=== PATIENT | male | born 1950 | race African-American/Black ===

== ENCOUNTER 2018-09-16 13:33 | Inpatient (IN) ==
[2018-09-16] MEDS ORDERED: MAGNESIUM SULF RIDER 4 GM in PREMIX 1 EACH IV PRN (15:48)
[2018-09-16] MEDS ORDERED: ACETAMINOPHEN 325 MG TABLET PO PRN (15:48)
[2018-09-16] MEDS ORDERED: ONDANSETRON 4 MG/2 ML VIAL IV PRN (15:48)
[2018-09-16] MEDS ORDERED: POTASSIUM CHLORIDE 20 MEQ TABLET PO PRN ×2 (15:48)
[2018-09-16] MEDS ORDERED: MAGNESIUM SULF RIDER 2 GM in PREMIX 1 EACH IV PRN (15:48)
[2018-09-16] MEDS ORDERED: ZALEPLON 5 MG CAPSULE PO PRN (15:48)
[2018-09-16] MEDS ORDERED: MORPHINE 4 MG/1 ML VIAL IV PRN (15:48)
[2018-09-16] MEDS ORDERED: MAGNESIUM SULF RIDER 2 GM in PREMIX 1 EACH IV ONE (16:01)
[2018-09-16] MEDS: NICOTINE 21 MG/24 HR PATCH TRANSDERM SCH (17:03)
[2018-09-16] MEDS: SODIUM CHLOR 0.9% KCL 40 MEQ 40 MEQ/1,000 ML BAG IV SCH (17:03)
[2018-09-16] MEDS: PANTOPRAZOLE 40 MG TABLET PO SCH (17:04)
[2018-09-16] MEDS: LORazepam 2 MG/1 ML VIAL IV PRN ×2 (17:04→21:17)
[2018-09-16] MEDS: FOLIC ACID 1 MG TABLET PO SCH (17:04)
[2018-09-16] MEDS: THIAMINE 100 MG TABLET PO SCH (17:04)
[2018-09-16] MEDS: NITROGLYCERIN 0.4 MG/HR PATCH TRANSDERM SCH (17:10)
[2018-09-16 17:23] LABS: Basophils % 0.4 % (0.0-0.8); Hematocrit 34.7 VOL% (42.0-52.0); Hemoglobin 11.4 GM/DL (14.0-18.0); Immature Granulocytes % 0.4 %; Immature Granulocytes Absolute 0.03 #; Lymphocytes # 1.8 10*3/uL (1.4-4.0); Lymphocytes % 26.4 % (21.2-54.2); Mean Corpuscular HGB Conc 32.9 GM/DL (32-36); Mean Corpuscular Hemoglobin 23 PG (27-34); Mean Corpuscular Volume 69.8 FL (87-102); Mean Platelet Volume 10.5 FL (9.6-12.0); Monocytes # 0.9 10*3/uL (0.11-0.8); Monocytes % 12.6 % (1.7-12.7); NRBC # 0.02 10*3/uL; Neutrophils # 4.1 10*3/uL (1.4-7.4); Neutrophils % 60.2 % (38.7-73.9); Platelet Count 209 T/CUMM (130-400); Red Blood Count 4.97 MC/CUMM (3.8-5.5); Red Cell Distribution Width 14.7 % (9.3-17.3); White Blood Count 6.8 T/CUMM (4-12)
[2018-09-16 17:41] LABS: PT Patient Result 11.1 SECS; Partial Thromboplastin Time 32.5 SECS (0-40)
[2018-09-16 17:43] LABS: Albumin 3.2 G/DL (3.4-5.0); Bilirubin,Total 0.4 MG/DL (0.2-1.0); Calcium 8.8 MG/DL (8.5-10.1); Osmolality,Calculated 265.2 MOS/KG (273-304); Total Protein 8.2 G/DL (6.4-8.3)
[2018-09-16] MEDS ORDERED: ATORVASTATIN 20 MG TABLET PO SCH (21:00)
[2018-09-16] MEDS: METOPROLOL TARTRATE 50 MG TABLET PO SCH (21:19)
[2018-09-17] MEDS: LORazepam 2 MG/1 ML VIAL IV PRN ×4 (01:10→21:25)
[2018-09-17] MEDS: SODIUM CHLOR 0.9% KCL 40 MEQ 40 MEQ/1,000 ML BAG IV SCH ×3 (03:01→20:17)
[2018-09-17 04:19] LABS: Basophils % 0.1 % (0.0-0.8); Eosinophils % 0.1 % (0.00-10.9); Hematocrit 34.4 VOL% (42.0-52.0); Hemoglobin 11.2 GM/DL (14.0-18.0); Immature Granulocytes % 0.3 %; Immature Granulocytes Absolute 0.02 #; Lymphocytes # 1.4 10*3/uL (1.4-4.0); Lymphocytes % 20.4 % (21.2-54.2); Mean Corpuscular HGB Conc 32.6 GM/DL (32-36); Mean Corpuscular Hemoglobin 23 PG (27-34); Mean Corpuscular Volume 70.5 FL (87-102); Mean Platelet Volume 10.5 FL (9.6-12.0); Monocytes # 1.1 10*3/uL (0.11-0.8); NRBC # 0.03 10*3/uL; Neutrophils # 4.5 10*3/uL (1.4-7.4); Neutrophils % 64.1 % (38.7-73.9); Platelet Count 208 T/CUMM (130-400); Red Blood Count 4.88 MC/CUMM (3.8-5.5); Red Cell Distribution Width 14.5 % (9.3-17.3)
[2018-09-17 04:22] LABS: Basophils % 0.3 % (0.0-0.8); Eosinophils % 0.1 % (0.00-10.9); Hematocrit 35.9 VOL% (42.0-52.0); Hemoglobin 11.4 GM/DL (14.0-18.0); Immature Granulocytes % 0.4 %; Immature Granulocytes Absolute 0.03 #; Lymphocytes # 1.3 10*3/uL (1.4-4.0); Lymphocytes % 19.3 % (21.2-54.2); Mean Corpuscular HGB Conc 31.8 GM/DL (32-36); Mean Corpuscular Hemoglobin 23 PG (27-34); Mean Corpuscular Volume 71.1 FL (87-102); Mean Platelet Volume 10.6 FL (9.6-12.0); Monocytes # 0.9 10*3/uL (0.11-0.8); Monocytes % 12.6 % (1.7-12.7); NRBC # 0.03 10*3/uL; Neutrophils # 4.6 10*3/uL (1.4-7.4); Neutrophils % 67.3 % (38.7-73.9); Platelet Count 219 T/CUMM (130-400); Red Blood Count 5.05 MC/CUMM (3.8-5.5); Red Cell Distribution Width 14.7 % (9.3-17.3); White Blood Count 6.8 T/CUMM (4-12)
[2018-09-17 04:46] LABS: Albumin 3.3 G/DL (3.4-5.0); Bilirubin,Total 1.3 MG/DL (0.2-1.0); Calcium 8.7 MG/DL (8.5-10.1); Osmolality,Calculated 267.2 MOS/KG (273-304); Potassium 4.1 MMOL/L (3.5-5.1); Risk Ratio 2.07; Total Protein 8.5 G/DL (6.4-8.3); VLDL CHOLESTEROL 12.8 MG/DL
[2018-09-17 08:24] LABS: Sedimentation Rate-Westergren 24 MM/HR (0-20)
[2018-09-17] MEDS: PANTOPRAZOLE 40 MG TABLET PO SCH (09:06)
[2018-09-17] MEDS: FOLIC ACID 1 MG TABLET PO SCH (09:06)
[2018-09-17] MEDS: ASPIRIN EC 325 MG TABLET PO SCH (09:06)
[2018-09-17] MEDS: THIAMINE 100 MG TABLET PO SCH (09:07)
[2018-09-17] MEDS: METOPROLOL TARTRATE 50 MG TABLET PO SCH ×2 (09:07→21:22)
[2018-09-17] MEDS: NITROGLYCERIN 0.4 MG/HR PATCH TRANSDERM SCH (09:07)
[2018-09-17] MEDS: NICOTINE 21 MG/24 HR PATCH TRANSDERM SCH (09:07)
[2018-09-17] MEDS ORDERED: ENOXAPARIN 40 MG/0.4 ML SYRINGE SUBCUT SCH (21:00)
[2018-09-18] MEDS: LORazepam 2 MG/1 ML VIAL IV PRN (01:30)
[2018-09-18] MEDS ORDERED: LORazepam 2 MG/1 ML VIAL IM ONE (01:56)
[2018-09-18] MEDS: SODIUM CHLOR 0.9% KCL 40 MEQ 40 MEQ/1,000 ML BAG IV SCH (02:31)
[2018-09-18 05:40] LABS: Albumin 3.3 G/DL (3.4-5.0); Bilirubin,Total 0.8 MG/DL (0.2-1.0); Calcium 8.6 MG/DL (8.5-10.1); Osmolality,Calculated 265.2 MOS/KG (273-304); Potassium 3.4 MMOL/L (3.5-5.1); Total Protein 7.6 G/DL (6.4-8.3)
[2018-09-18] MEDS: THIAMINE 100 MG TABLET PO SCH (08:25)
[2018-09-18] MEDS: ASPIRIN EC 325 MG TABLET PO SCH (08:25)
[2018-09-18] MEDS: METOPROLOL TARTRATE 50 MG TABLET PO SCH (08:25)
[2018-09-18] MEDS: PANTOPRAZOLE 40 MG TABLET PO SCH (08:25)
[2018-09-18] MEDS: FOLIC ACID 1 MG TABLET PO SCH (08:25)
[2018-09-18] MEDS: NICOTINE 21 MG/24 HR PATCH TRANSDERM SCH (08:26)
[2018-09-18] MEDS: NITROGLYCERIN 0.4 MG/HR PATCH TRANSDERM SCH (08:26)
[2018-09-18] MEDS ORDERED: chlordiazePOXIDE 10 MG CAPSULE PO SCH (09:00)
[2018-09-18 12:08] VITALS: BP 127/77
[2018-09-18] MEDS ORDERED: INFLUENZA VIRUS VACCINE 0.5 ML SYRINGE IM ONE (12:11)
== END 2018-09-18 12:27 | disposition home or self-care (01) | DRG 313 ==
LOC: N.TELEN → SUATTDRO 15:47
PROVIDERS: ADMIT Internal Medicine; ATTEND Internal Medicine

== ENCOUNTER 2021-12-03 17:37 | Inpatient (IN) ==
[2021-12-03] MEDS ORDERED: fentaNYL 100 MCG/2 ML VIAL IV STA (18:12)
[2021-12-03] MEDS ORDERED: hydrALAZINE 20 MG/1 ML VIAL IV STA (18:12)
[2021-12-03] MEDS ORDERED: ONDANSETRON 4 MG/2 ML VIAL IV STA (18:12)
[2021-12-03 18:22] LABS: Basophils % 0.2 % (0.0-0.8); Eosinophils % 0.1 % (0.00-10.9); Hematocrit 35.2 VOL% (42.0-52.0); Hemoglobin 11.9 GM/DL (14.0-18.0); Immature Granulocytes % 0.6 %; Immature Granulocytes Absolute 0.08 #; Lymphocytes % 14.8 % (21.2-54.2); Mean Corpuscular HGB Conc 33.8 GM/DL (32-36); Mean Corpuscular Volume 71.5 FL (87-102); Monocytes % 9.2 % (1.7-12.7); NRBC # 0.03 10*3/uL; Neutrophils % 75.1 % (38.7-73.9); Platelet Count 235 T/CUMM (130-400); Red Blood Count 4.92 MC/CUMM (3.8-5.5); Red Cell Distribution Width 15.4 % (9.3-17.3); White Blood Count 13.7 T/CUMM (4-12)
[2021-12-03 18:48] LABS: Bilirubin,Total 0.4 MG/DL (0.20-1.00); Calcium 8.4 MG/DL (8.5-10.1); Osmolality,Calculated 263.4 MOS/KG (273-304); Potassium 3.2 MMOL/L (3.5-5.1); Total Protein 7.6 G/DL (6.4-8.2)
[2021-12-03] MEDS ORDERED: LORazepam 2 MG/1 ML VIAL IV STA (20:16)
[2021-12-03] MEDS ORDERED: MAGNESIUM SULF RIDER 2 GM/50 ML PREMIX IV STA (20:25)
[2021-12-03 20:29] LABS: ABG Base Excess 3.2 MMOL/L (-2.5-2.5); ABG HCO3 24.8 MMOL/L (20-26); ABG Oxygen Saturation 91.3 % (95-100); ABG PCO2 28.7 MM HG (35-48); ABG PH 7.554 (7.35-7.45); ABG PO2 59.9 MM HG (80-95); ABG TCO2 25.7 MMOL/L (23-27)
[2021-12-03] MEDS ORDERED: cloNIDine 0.3 MG/24 HR PATCH TRANSDERM SCH (20:30)
[2021-12-03] MEDS ORDERED: LORazepam 2 MG/1 ML VIAL IV PRN (20:31)
[2021-12-03] MEDS ORDERED: KETOROLAC 30 MG/1 ML VIAL IV STA (20:34)
[2021-12-03] MEDS ORDERED: fentaNYL 100 MCG/2 ML VIAL IV PRN (20:38)
[2021-12-03] MEDS ORDERED: DEXTROSE 10% 250 ML BAG IV PRN (20:40)
[2021-12-03] MEDS ORDERED: GLUCAGON 1 MG VIAL IM PRN (20:40)
[2021-12-03] MEDS ORDERED: ONDANSETRON 4 MG/2 ML VIAL IV PRN (20:44)
[2021-12-03] MEDS: MEROPENEM 500 MG in SODIUM CHLORIDE 0.9% 100 ML IV SCH (20:49)
[2021-12-03] MEDS ORDERED: ALBUTEROL/IPRATROPIUM 3 ML NEB RESP TX SCH (21:00)
[2021-12-03] MEDS ORDERED: DOXYCYCLINE HYCLATE INJ 100 MG in SODIUM CHLORIDE 0.9% 100 ML IV SCH (21:00)
[2021-12-03 22:17] LABS: Barbiturates Screen,Urine Negative (Negative); Benzodiazepines Screen,Urine Negative (Negative); Cannabinoid Screen,Urine Negative (Negative); Opiate Screen,Urine Positive (Negative); Phencyclidine Screen,Urine Negative (Negative)
[2021-12-03] MEDS: ENOXAPARIN 40 MG/0.4 ML SYRINGE SUBCUT SCH (23:03)
[2021-12-03] MEDS: THIAMINE 200 MG/2 ML VIAL IV SCH (23:48)
[2021-12-03] MEDS: DEXT 5% NACL 0.45% KCL 20 MEQ 20 MEQ/1,000 ML BAG IV SCH (23:49)
[2021-12-04] MEDS: LORazepam 2 MG/1 ML VIAL IV SCH ×4 (00:11→21:37)
[2021-12-04] MEDS: MEROPENEM 500 MG in SODIUM CHLORIDE 0.9% 100 ML IV SCH (01:58)
[2021-12-04 05:13] LABS: Basophils % 0.4 % (0.0-0.8); Eosinophils % 0.1 % (0.00-10.9); Hematocrit 35.8 VOL% (42.0-52.0); Hemoglobin 12.1 GM/DL (14.0-18.0); Immature Granulocytes % 0.5 %; Immature Granulocytes Absolute 0.05 #; Lymphocytes # 1.6 10*3/uL (1.4-4.0); Lymphocytes % 15.2 % (21.2-54.2); Mean Corpuscular HGB Conc 33.8 GM/DL (32-36); Mean Corpuscular Volume 71.6 FL (87-102); Mean Platelet Volume 9.7 FL (9.6-12.0); Monocytes % 14.7 % (1.7-12.7); NRBC # 0.02 10*3/uL; Neutrophils % 69.1 % (38.7-73.9); Platelet Count 251 T/CUMM (130-400); Red Cell Distribution Width 15.6 % (9.3-17.3); White Blood Count 10.3 T/CUMM (4-12)
[2021-12-04 05:52] LABS: Potassium 2.8 MMOL/L (3.5-5.1); Thyroid Stimulating Hormone 1.51 uIU/ml (0.358-3.74)
[2021-12-04] MEDS: ALBUTEROL/IPRATROPIUM 3 ML NEB RESP TX SCH ×4 (07:30→20:00)
[2021-12-04] MEDS ORDERED: POTASSIUM CHLORIDE RIDER 10 MEQ/100 ML PREMIX IV PRN (07:54)
[2021-12-04] MEDS ORDERED: ERTAPENEM 1,000 MG in SODIUM CHLORIDE 0.9% 100 ML IV ONE (08:00)
[2021-12-04] MEDS: POTASSIUM CHLORIDE 20 MEQ TABLET PO PRN (09:07)
[2021-12-04] MEDS: FOLIC ACID INJ 1 MG in SYRINGE 1 EACH IV SCH (09:08)
[2021-12-04] MEDS: THIAMINE 200 MG/2 ML VIAL IV SCH ×2 (09:08→21:34)
[2021-12-04] MEDS: PANTOPRAZOLE 40 MG VIAL IV SCH (09:08)
[2021-12-04] MEDS: PIPERACILLIN/TAZOBACTAM 3,375 MG in SODIUM CHLORIDE 0.9% 100 ML IV SCH ×2 (09:09→15:27)
[2021-12-04] MEDS ORDERED: SUCCINYLCHOLINE 200 MG/10 ML VIAL ONE (10:49)
[2021-12-04] MEDS ORDERED: PHENYLEPHRINE 1 MG/10 ML SYRINGE IV ONE (10:49)
[2021-12-04] MEDS ORDERED: propofoL 200 MG/20 ML VIAL IV ONE (10:49)
[2021-12-04] MEDS ORDERED: ROCURONIUM 50 MG/5 ML VIAL IV ONE (10:49)
[2021-12-04] MEDS ORDERED: ETOMIDATE 40 MG/20 ML VIAL IV ONE (10:49)
[2021-12-04] MEDS ORDERED: ONDANSETRON 4 MG/2 ML VIAL ONE (10:49)
[2021-12-04] MEDS ORDERED: SEVOFLURANE 1 UNIT/15 MINUTE INH ONE (10:49)
[2021-12-04] MEDS ORDERED: LIDOCAINE 2% 5 ML VIAL ONE (10:49)
[2021-12-04] MEDS ORDERED: MIDAZOLAM 2 MG/2 ML VIAL ONE (10:49)
[2021-12-04] MEDS ORDERED: fentaNYL 250 MCG/5 ML VIAL ONE (10:50)
[2021-12-04] MEDS ORDERED: DEXAMETHASONE 4 MG/1 ML VIAL ONE (10:54)
[2021-12-04] MEDS ORDERED: LIDOCAINE 1% 5 ML VIAL ONE (10:54)
[2021-12-04] MEDS ORDERED: ROPIVACAINE 0.5% 30 ML VIAL ONE (10:54)
[2021-12-04] MEDS ORDERED: INDOCYANINE GREEN 25 MG VIAL IV ONE (10:57)
[2021-12-04] MEDS ORDERED: ALBUTEROL 2.5 MG/3 ML NEB RESP TX ONE (11:51)
[2021-12-04] MEDS ORDERED: PHENYLEPHRINE 10 MG/1 ML VIAL IV ONE (12:25)
[2021-12-04] MEDS ORDERED: NEOSTIGMINE 10 MG/10 ML VIAL ONE (13:19)
[2021-12-04] MEDS ORDERED: GLYCOPYRROLATE 0.4 MG/2 ML VIAL ONE (13:19)
[2021-12-04] MEDS: LACTATED RINGERS 1,000 ML IV SCH (15:26)
[2021-12-04 16:11] LABS: Basophils % 0.1 % (0.0-0.8); Eosinophils % 0.1 % (0.00-10.9); Hematocrit 36.6 VOL% (42.0-52.0); Hemoglobin 12.1 GM/DL (14.0-18.0); Immature Granulocytes % 0.5 %; Immature Granulocytes Absolute 0.04 #; Lymphocytes # 0.4 10*3/uL (1.4-4.0); Lymphocytes % 5.4 % (21.2-54.2); Mean Corpuscular HGB Conc 33.1 GM/DL (32-36); Mean Platelet Volume 9.2 FL (9.6-12.0); Monocytes % 2.8 % (1.7-12.7); Neutrophils % 91.1 % (38.7-73.9); Platelet Count 241 T/CUMM (130-400); Red Blood Count 5.08 MC/CUMM (3.8-5.5); Red Cell Distribution Width 15.6 % (9.3-17.3); White Blood Count 8.1 T/CUMM (4-12)
[2021-12-04 16:30] LABS: Calcium 7.9 MG/DL (8.5-10.1); Osmolality,Calculated 274.8 MOS/KG (273-304); Potassium 3.2 MMOL/L (3.5-5.1)
[2021-12-04 16:41] LABS: Band Neutrophils 4 % (0-10); Lymphocytes 5 % (20-55); Segmented Neutrophils 88 % (50-85); Total Cells Counted 100
[2021-12-04 16:42] LABS: Hypochromia 1+; Platelet Estimate Adequate; Target Cells 1+
[2021-12-04] MEDS: DEXT 5% NACL 0.45% KCL 20 MEQ 20 MEQ/1,000 ML BAG IV SCH (19:02)
[2021-12-04] MEDS: ENOXAPARIN 40 MG/0.4 ML SYRINGE SUBCUT SCH (21:31)
[2021-12-05] MEDS: ALBUTEROL/IPRATROPIUM 3 ML NEB RESP TX SCH ×2 (00:20→07:35)
[2021-12-05] MEDS: LACTATED RINGERS 1,000 ML IV SCH ×2 (03:49→14:07)
[2021-12-05] MEDS: LORazepam 2 MG/1 ML VIAL IV SCH ×2 (05:30→13:15)
[2021-12-05 07:07] LABS: Basophils % 0.2 % (0.0-0.8); Hematocrit 34.3 VOL% (42.0-52.0); Hemoglobin 11.4 GM/DL (14.0-18.0); Immature Granulocytes % 0.5 %; Immature Granulocytes Absolute 0.06 #; Lymphocytes # 1.2 10*3/uL (1.4-4.0); Lymphocytes % 9.9 % (21.2-54.2); Mean Corpuscular HGB Conc 33.2 GM/DL (32-36); Mean Corpuscular Volume 72.4 FL (87-102); Mean Platelet Volume 9.8 FL (9.6-12.0); Monocytes % 9.5 % (1.7-12.7); NRBC # 0.02 10*3/uL; Neutrophils % 79.9 % (38.7-73.9); Platelet Count 251 T/CUMM (130-400); Red Blood Count 4.74 MC/CUMM (3.8-5.5); Red Cell Distribution Width 15.6 % (9.3-17.3); White Blood Count 12.5 T/CUMM (4-12)
[2021-12-05 07:31] LABS: Hypochromia Slight; Lymphocytes 15 % (20-55); Microcytosis Slight; Platelet Estimate Adequate; Segmented Neutrophils 81 % (50-85); Target Cells Few; Total Cells Counted 100
[2021-12-05 07:45] LABS: Albumin 2.6 G/DL (3.4-5.0); Bilirubin,Total 0.6 MG/DL (0.20-1.00); Calcium 8.3 MG/DL (8.5-10.1); Osmolality,Calculated 267.1 MOS/KG (273-304); Potassium 3.4 MMOL/L (3.5-5.1)
[2021-12-05] MEDS ORDERED: MAGNESIUM SULF RIDER 2 GM/50 ML PREMIX IV ONE (08:05)
[2021-12-05] MEDS: FOLIC ACID INJ 1 MG in SYRINGE 1 EACH IV SCH (08:47)
[2021-12-05] MEDS: PANTOPRAZOLE 40 MG VIAL IV SCH (08:49)
[2021-12-05] MEDS: THIAMINE 200 MG/2 ML VIAL IV SCH (08:53)
[2021-12-05] MEDS: POTASSIUM CHLORIDE 20 MEQ TABLET PO PRN ×2 (08:56→13:15)
[2021-12-05 11:53] VITALS: BP 141/79
== END 2021-12-05 14:13 | disposition home or self-care (01) | DRG 329 ==
LOC: EDUNIT# → EDBD → N.ED 17:37 → N.TELES 19:14 → SUATTDRO 19:14 → N.TELES 23:04
PROVIDERS: ADMIT Internal Medicine; ATTEND Emergency Medicine

== ENCOUNTER 2021-12-08 16:03 | Inpatient (IN) ==
[2021-12-08 19:26] LABS: Basophils % 0.1 % (0.0-0.8); Hematocrit 26.3 VOL% (42.0-52.0); Hemoglobin 8.7 GM/DL (14.0-18.0); Immature Granulocytes % 1.4 %; Immature Granulocytes Absolute 0.14 #; Lymphocytes # 1.5 10*3/uL (1.4-4.0); Lymphocytes % 14.7 % (21.2-54.2); Mean Corpuscular HGB Conc 33.1 GM/DL (32-36); Mean Corpuscular Volume 73.9 FL (87-102); Mean Platelet Volume 9.9 FL (9.6-12.0); Monocytes % 8.4 % (1.7-12.7); NRBC # 0.02 10*3/uL; Neutrophils % 75.4 % (38.7-73.9); Platelet Count 247 T/CUMM (130-400); Red Blood Count 3.56 MC/CUMM (3.8-5.5); Red Cell Distribution Width 14.9 % (9.3-17.3); White Blood Count 10.2 T/CUMM (4-12)
[2021-12-08 19:41] LABS: Albumin 2.5 G/DL (3.4-5.0); Bilirubin,Total 0.6 MG/DL (0.20-1.00); Osmolality,Calculated 263.5 MOS/KG (273-304); Potassium 3.8 MMOL/L (3.5-5.1); Total Protein 6.6 G/DL (6.4-8.2)
[2021-12-08 20:03] LABS: Band Neutrophils 5 % (0-10); Lymphocytes 8 % (20-55); Metamyelocytes 1 %; Segmented Neutrophils 81 % (50-85); Total Cells Counted 100
[2021-12-08 20:04] LABS: Microcytosis 1+; Polychromasia Slight; Target Cells Few
[2021-12-08 20:05] LABS: Hypochromia Slight; Platelet Estimate Normal; Schistocytes Slight
[2021-12-08] MEDS: DEXTROSE 5% NACL 0.45% 1,000 ML IV SCH (20:27)
[2021-12-08] MEDS: ONDANSETRON 4 MG/2 ML VIAL IV PRN (20:27)
[2021-12-08] MEDS: fentaNYL 100 MCG/2 ML VIAL IV PRN (20:27)
[2021-12-08] MEDS: PIPERACILLIN/TAZOBACTAM 3,375 MG in SODIUM CHLORIDE 0.9% 100 ML IV SCH (21:04)
[2021-12-09] MEDS: fentaNYL 100 MCG/2 ML VIAL IV PRN ×6 (01:10→22:08)
[2021-12-09] MEDS: DEXTROSE 5% NACL 0.45% 1,000 ML IV SCH ×3 (05:50→18:44)
[2021-12-09] MEDS: PIPERACILLIN/TAZOBACTAM 3,375 MG in SODIUM CHLORIDE 0.9% 100 ML IV SCH (06:00)
[2021-12-09] MEDS: ONDANSETRON 4 MG/2 ML VIAL IV PRN ×2 (06:01→14:06)
[2021-12-09] MEDS: PANTOPRAZOLE 40 MG VIAL IV SCH (09:50)
[2021-12-10] MEDS: fentaNYL 100 MCG/2 ML VIAL IV PRN ×4 (02:10→22:40)
[2021-12-10] MEDS: DEXTROSE 5% NACL 0.45% 1,000 ML IV SCH ×2 (06:34→11:22)
[2021-12-10 09:38] LABS: Basophils % 0.1 % (0.0-0.8); Eosinophils % 0.3 % (0.00-10.9); Hematocrit 26.5 VOL% (42.0-52.0); Hemoglobin 8.7 GM/DL (14.0-18.0); Immature Granulocytes % 1.1 %; Immature Granulocytes Absolute 0.15 #; Lymphocytes # 1.2 10*3/uL (1.4-4.0); Mean Corpuscular HGB Conc 32.8 GM/DL (32-36); Mean Corpuscular Volume 73.6 FL (87-102); Mean Platelet Volume 9.6 FL (9.6-12.0); Monocytes % 8.5 % (1.7-12.7); Platelet Count 264 T/CUMM (130-400); Red Cell Distribution Width 14.3 % (9.3-17.3); White Blood Count 13.5 T/CUMM (4-12)
[2021-12-10 09:55] LABS: Calcium 8.3 MG/DL (8.5-10.1); Osmolality,Calculated 258.8 MOS/KG (273-304); Potassium 3.6 MMOL/L (3.5-5.1)
[2021-12-10 09:59] LABS: Hypochromia 1+; Lymphocytes 10 % (20-55); Microcytosis 1+; Platelet Estimate Adequate; Segmented Neutrophils 83 % (50-85); Total Cells Counted 100
[2021-12-10] MEDS: PANTOPRAZOLE 40 MG VIAL IV SCH (11:21)
[2021-12-10] MEDS: SODIUM CHLORIDE 0.9% 1,000 ML IV SCH ×2 (12:34→21:26)
[2021-12-10] MEDS: amLODIPine 10 MG TABLET PO SCH (15:59)
[2021-12-10] MEDS: TAMSULOSIN 0.4 MG CAPSULE PO SCH (21:13)
[2021-12-11] MEDS: fentaNYL 100 MCG/2 ML VIAL IV PRN ×5 (03:28→22:09)
[2021-12-11] MEDS: SODIUM CHLORIDE 0.9% 1,000 ML IV SCH ×2 (05:30→13:30)
[2021-12-11 05:55] LABS: Basophils % 0.2 % (0.0-0.8); Eosinophils % 0.2 % (0.00-10.9); Hematocrit 28.4 VOL% (42.0-52.0); Hemoglobin 9.2 GM/DL (14.0-18.0); Immature Granulocytes Absolute 0.12 #; Lymphocytes # 1.4 10*3/uL (1.4-4.0); Lymphocytes % 12.2 % (21.2-54.2); Mean Corpuscular HGB Conc 32.4 GM/DL (32-36); Mean Corpuscular Volume 74.3 FL (87-102); Mean Platelet Volume 9.4 FL (9.6-12.0); Monocytes % 9.8 % (1.7-12.7); Neutrophils % 76.6 % (38.7-73.9); Platelet Count 352 T/CUMM (130-400); Red Blood Count 3.82 MC/CUMM (3.8-5.5); Red Cell Distribution Width 14.3 % (9.3-17.3); White Blood Count 11.5 T/CUMM (4-12)
[2021-12-11 06:15] LABS: Calcium 8.6 MG/DL (8.5-10.1); Potassium 3.4 MMOL/L (3.5-5.1)
[2021-12-11 06:24] LABS: Eosinophils 1 % (0-10); Hypochromia 1+; Lymphocytes 8 % (20-55); Microcytosis 1+; Segmented Neutrophils 85 % (50-85); Target Cells Slight; Total Cells Counted 100
[2021-12-11 06:25] LABS: Ovalocytes Slight; Platelet Estimate Normal
[2021-12-11] MEDS: amLODIPine 10 MG TABLET PO SCH (09:30)
[2021-12-11] MEDS: PANTOPRAZOLE 40 MG VIAL IV SCH (09:31)
[2021-12-11] MEDS: TAMSULOSIN 0.4 MG CAPSULE PO SCH (21:12)
[2021-12-12] MEDS: SODIUM CHLORIDE 0.9% 1,000 ML IV SCH ×4 (00:23→21:21)
[2021-12-12] MEDS: fentaNYL 100 MCG/2 ML VIAL IV PRN ×4 (03:44→22:44)
[2021-12-12 07:11] LABS: Basophils % 0.2 % (0.0-0.8); Hematocrit 27.3 VOL% (42.0-52.0); Hemoglobin 8.8 GM/DL (14.0-18.0); Immature Granulocytes % 0.6 %; Immature Granulocytes Absolute 0.04 #; Lymphocytes # 1.1 10*3/uL (1.4-4.0); Lymphocytes % 16.2 % (21.2-54.2); Mean Corpuscular HGB Conc 32.2 GM/DL (32-36); Mean Corpuscular Volume 74.2 FL (87-102); Mean Platelet Volume 9.2 FL (9.6-12.0); Monocytes % 16.7 % (1.7-12.7); Neutrophils % 66.3 % (38.7-73.9); Platelet Count 438 T/CUMM (130-400); Red Blood Count 3.68 MC/CUMM (3.8-5.5); Red Cell Distribution Width 14.2 % (9.3-17.3); White Blood Count 6.5 T/CUMM (4-12)
[2021-12-12 07:24] LABS: Calcium 8.5 MG/DL (8.5-10.1); Osmolality,Calculated 273.7 MOS/KG (273-304); Potassium 2.9 MMOL/L (3.5-5.1)
[2021-12-12 07:39] LABS: Hypochromia 1+; Lymphocytes 16 % (20-55); Microcytosis 1+; Platelet Estimate Adequate; Segmented Neutrophils 70 % (50-85); Total Cells Counted 100
[2021-12-12] MEDS: amLODIPine 10 MG TABLET PO SCH (08:29)
[2021-12-12] MEDS: PANTOPRAZOLE 40 MG VIAL IV SCH (08:31)
[2021-12-12] MEDS: POTASSIUM CHLORIDE RIDER 10 MEQ/100 ML PREMIX IV SCH ×6 (10:29→17:38)
[2021-12-12] MEDS: chlorproMAZINE INJ 25 MG in SODIUM CHLORIDE 0.9% 100 ML IV PRN (11:31)
[2021-12-12] MEDS: TAMSULOSIN 0.4 MG CAPSULE PO SCH (20:52)
[2021-12-13] MEDS ORDERED: POTASSIUM CHLORIDE RIDER 10 MEQ/100 ML PREMIX IV PRN
[2021-12-13] MEDS: fentaNYL 100 MCG/2 ML VIAL IV PRN ×5 (02:09→21:42)
[2021-12-13] MEDS: SODIUM CHLORIDE 0.9% 1,000 ML IV SCH ×2 (05:25→21:43)
[2021-12-13 09:02] LABS: Basophils % 0.2 % (0.0-0.8); Eosinophils % 0.2 % (0.00-10.9); Hematocrit 27.9 VOL% (42.0-52.0); Immature Granulocytes % 0.6 %; Immature Granulocytes Absolute 0.07 #; Lymphocytes # 1.8 10*3/uL (1.4-4.0); Lymphocytes % 14.4 % (21.2-54.2); Mean Corpuscular HGB Conc 32.3 GM/DL (32-36); Mean Corpuscular Volume 74.4 FL (87-102); Monocytes % 10.2 % (1.7-12.7); Neutrophils % 74.4 % (38.7-73.9); Platelet Count 457 T/CUMM (130-400); Red Blood Count 3.75 MC/CUMM (3.8-5.5); Red Cell Distribution Width 14.2 % (9.3-17.3); White Blood Count 12.1 T/CUMM (4-12)
[2021-12-13 09:26] LABS: Calcium 8.4 MG/DL (8.5-10.1); Osmolality,Calculated 268.8 MOS/KG (273-304)
[2021-12-13] MEDS: amLODIPine 10 MG TABLET PO SCH (10:02)
[2021-12-13] MEDS: PANTOPRAZOLE 40 MG VIAL IV SCH (10:03)
[2021-12-13 10:18] LABS: Atypical Lymphocytes Few; Hypochromia 3+; Lymphocytes 15 % (20-55); Segmented Neutrophils 76 % (50-85); Total Cells Counted 100
[2021-12-13 10:19] LABS: Ovalocytes Few; Platelet Estimate Increased; Polychromasia Slight; Target Cells Few; Tear Drop Cells Few
[2021-12-13] MEDS: chlorproMAZINE INJ 25 MG in SODIUM CHLORIDE 0.9% 100 ML IV PRN (18:12)
[2021-12-13] MEDS: TAMSULOSIN 0.4 MG CAPSULE PO SCH (21:42)
[2021-12-14] MEDS: SODIUM CHLORIDE 0.9% 1,000 ML IV SCH ×4 (00:36→11:21)
[2021-12-14] MEDS: fentaNYL 100 MCG/2 ML VIAL IV PRN ×3 (01:21→09:34)
[2021-12-14] MEDS: PANTOPRAZOLE 40 MG VIAL IV SCH (08:45)
[2021-12-14] MEDS: amLODIPine 10 MG TABLET PO SCH (08:54)
[2021-12-14 11:08] VITALS: BP 148/78
== END 2021-12-14 11:33 | disposition home or self-care (01) | DRG 394 ==
LOC: EDUNIT# → EDBD → N.ED 16:03 → N.EDINP 18:36 → N.5E 12-09 16:30
PROVIDERS: ADMIT Surgery; ATTEND Surgery